=== PATIENT | female | born 1995 | race African-American/Black ===

== ENCOUNTER 2019-09-18 21:29 | Emergency (ER) | payer SELFPAY ==
[~2019-09-18] VITALS: Ht 157.5 cm; Wt 76.2 kg
[2019-09-18 21:55] VITALS: BP 104/69
[2019-09-18] MEDS ORDERED: ZITHROMAX250 MG ORAL (22:19)
[2019-09-18] MEDS ORDERED: GUAIFENESIN DM118 M1 ORAL (22:19)
--- NOTE | 2019-09-18 22:22 | Emergency Room Report ---
History of Present Illness General Chief Complaint: Upper Respiratory Illness Source: Patient Present Illness HPI Patient is a 23-year-old female presents after increased cough and sore throat. She reports having onset of symptoms approximate 5 days ago. Patient denies any vomiting. She reports having generalized body aches. Subjective fever denies being . Allergies: Coded Allergies: Dairy (Verified Allergy, Unknown, 09/18/19) PENICILLINS (Verified Allergy, Unknown, 09/18/19) Patient History Past Medical History: see triage record Now: No Reviewed Nursing Documentation: PMH: Agreed; PSxH: Agreed Nursing Documentation-PMH Hx Cardiac Problems: No - IRON DEFICIENCY ANEMIA Review of Systems All Other Systems: negative except mentioned in HPI Physical Exam Vital Signs Date Time Temp Pulse Resp B/P (MAP) Pulse Ox O2 Delivery O2 Flow Rate FiO2 09/18/19 21:49 98.1 81 20 104/69 (81) 98 Room Air Sp02 EP Interpretation: reviewed, normal General Appearance: normal inspection, well appearing, no apparent distress, alert, GCS 15, non-toxic Head: atraumatic ENT: normal voice, tonsillar swelling, tonsillar exudate Neck: normal inspection, full range of motion, supple, no bony tend Respiratory: normal inspection, lungs clear, normal breath sounds, no respiratory distress, no retraction, no wheezing Cardiovascular #1: regular rate, rhythm, no edema Gastrointestinal: normal inspection, normal bowel sounds, non tender, soft, no guarding, no hernia Genitourinary: no CVA tenderness Musculoskeletal: normal inspection, back normal, normal range of motion Neurologic: alert, motor strength/tone normal, child protective investigator III-XII nml as tested, EOM palsy, oriented x3, responsive, speech normal, normal inspection Psychiatric: normal inspection, judgement/insight normal, mood/affect normal Medical Decision Making Diagnostic Impression: Primary Impression: Pharyngitis ER Course Patient presented for sore throat. Differential diagnosis include was not limited to tonsillitis, pneumonia, bronchitis among others. Patient has a benign exam and does not appear to require any imaging or laboratory testing at this time. Patient appears to have a bacterial pharyngitis. She will be given prescription for azithromycin. She advised to follow-up with a primary care physician for recheck in 2 to 3 days. She advised to return if worse.This medical record is generated with [employer] practice architect software. There may be some practice architect discrepancies related to use of this software Last Vital Signs Date Time Temp Pulse Resp B/P (MAP) Pulse Ox O2 Delivery O2 Flow Rate FiO2 09/18/19 21:55 98.1 20 104/69 98 Room Air 09/18/19 21:55 81 Status: improved Disposition: HOME, SELF-CARE Condition: Stable Scripts Guaifenesin/Dextromethorphan (Guaifenesin Dm Syrup) 5 Ml Syrup 1 TSP ORAL Q8H, #118 ML 0 Refills Prov: Chris Mike MD 09/18/19 Azithromycin* (ZITHROMAX*) 250 Mg Tablet 250 MG ORAL DAILY, #6 TAB 0 Refills Take two tables once daily for 1 day, then one tablet once daily for 4 days. Prov: Chris Mike MD 09/18/19 Patient Instructions: Pharyngitis, [id number] Additional Instructions: Follow up with your doctor for recheck in 2-3 days. Return if worse. Chris Mike MD Sep 18, 2019 22:22
[2019-09-18] MEDS ORDERED: Lidocaine 2% Visc 15ml soln ORAL ONE (22:30)
== END 2019-09-18 22:30 | disposition home or self-care (01) ==
LOC: EMR 22:25
DX: J02.9 Acute pharyngitis, unspecified (principal); Z88.0 Allergy status to penicillin; Z91.011 Allergy to milk products
CPT/HCPCS: 99282